=== PATIENT | male | born 1965 | race Caucasian/White ===

== ENCOUNTER 2020-11-17 06:13 | Day surgery (SDC) | payer OTHER ==
[~2020-11-17] VITALS: Ht 170.2 cm; Wt 95.4 kg
[~2020-11-17 06:13] MED LIST: AMLO5 PO; GABA300 PO; MELO7.5 PO; OMEP20ER PO; POTCIT10 PO; VITAMIN D325 MC3 PO
[2020-11-17] MEDS ORDERED: ACET500 PO (06:30)
--- NOTE | 2020-11-17 07:08 | NUR ---
Ambulatory in Day Surgery. History, Chart, Medications and Allergies reviewed before start of procedure. Lungs clear T/O to Auscultation. Patient confirms NPO status and agrees with scheduled surgery. Pre-Op teaching done. Pt verbalizes understanding. Patient States Post-Procedure ride home has been arranged.
--- NOTE | 2020-11-17 09:57 | NUR ---
Patient up to Ambulate independently. Gait steady. Discharge instructions reviewed with patient. Patient verbalizes understanding. Copy given to patient to take home. Discharged via wheelchair to private car for ride home. PT GIVEN ICE PACK AND RX PRESCRIPTION IN DISCHARGE FOLDER.
== END 2020-11-17 09:56 | disposition home or self-care (01) ==
LOC: ORSCMMR 06:13 → ORD 07:30 → ORSCMMR 07:30
PROVIDERS: Surgery
PROC: 0WUF0JZ Supplement Abdominal Wall with Synthetic Substitute, Open Approach (ICD-10-PCS; principal; 2020-11-17 07:30)
DX: K43.0 Incisional hernia with obstruction, without gangrene (principal); I10 Essential (primary) hypertension; K21.9 Gastro-esophageal reflux disease without esophagitis; Z87.891 Personal history of nicotine dependence; Z79.899 Other long term (current) drug therapy
CPT/HCPCS: C1781; J0690; J1100; J1885; J2250; J2370; J2405; J2704; J2765; J3010; J7120

== ENCOUNTER 2023-10-25 08:31 | Emergency (ER) | payer OTHER ==
[~2023-10-25] VITALS: Ht 170.2 cm; Wt 92.1 kg
[~2023-10-25 08:31] MED LIST changes: +ACET500 PO
[2023-10-25 09:03] VITALS: BP 143/101
== END 2023-10-25 10:17 | disposition home or self-care (01) ==
LOC: ER 08:31
DX: M70.42 Prepatellar bursitis, left knee (principal); Z79.899 Other long term (current) drug therapy
CPT/HCPCS: 99283